=== PATIENT | male | born 1965 | race African-American/Black ===

== ENCOUNTER 2023-12-02 17:11 | Emergency (ER) | payer OTHER ==
[~2023-12-02] VITALS: Ht 185.4 cm; Wt 81.0 kg
[2023-12-02 17:16] VITALS: O2SAT 100
[2023-12-02] MEDS ORDERED: HYDROCODONE/ACETAMINOPHEN 5/325MG TABLET PO ONE (17:45)
[2023-12-02] MEDS ORDERED: LIDOCAINE HCL 1% 20ML VIAL INFIL ONE (18:45)
[2023-12-02] MEDS: LIDOCAINE HCL 1% 20ML VIAL INFIL NR (19:30)
[2023-12-02] MEDS: HYDROCODONE/ACETAMINOPHEN 5/325MG TABLET PO NR (20:29)
[2023-12-02 21:00] VITALS: BP 142/88; PULSE 77; RESP 16; TEMP 36.61404; O2SAT 100
[2023-12-02] MEDS ORDERED: HYDR-4001 MT (21:02)
[2023-12-02] MEDS ORDERED: NAPR-681 MT (21:02)
== END 2023-12-02 20:12 | disposition home or self-care (01) ==
LOC: ER 17:11
DX: S52.592A Other fractures of lower end of left radius, initial encounter for closed fracture (principal); E11.9 Type 2 diabetes mellitus without complications; W01.0XXA Fall on same level from slipping, tripping and stumbling without subsequent striking against object, initial encounter; Y93.89 Activity, other specified; Y92.89 Other specified places as the place of occurrence of the external cause; Y99.8 Other external cause status
CPT/HCPCS: 25605; 29125; 73100; 73110; 73130; 99284; A4565